=== PATIENT | male | born 1955 ===

== ENCOUNTER 2021-09-09 20:40 | Inpatient (IN) | payer OTHER, SELFPAY ==
[2021-09-09] VITALS (7 sets, daily range): BP systolic 139; BP diastolic 88; PULSE 117–122; RESP 17–30; TEMP 36.1–36.3; O2SAT 97–100; BMI 25.0
--- NOTE | 2021-09-09 21:59 | P.HP_ITS ---
History of Present Illness History of Present Illness Date Patient Seen: 09/09/21 Time Patient Seen: 21:58 Chief complaint: Chest pain Narrative: Igor Antony is a 66-year-old male with a medical history of anxiety, CAD, CABG s/p stents X2, NIDDM, hyperlipidemia, hypertension, sleep apnea, BPH and multiple sclerosis who presented to the [facility] ED complaining of chest pain, nausea, vomiting, lightheadedness, and headache x2 days. Chest pain was described as chest heaviness like a safe sitting on chest Chest pressure :constant, generalized, diffuse, moderate, no known inciting factors, improved with Medication in ED, with associated JAIMES which is unusual for the patient, nausea, and vomiting. And patient has been unable to keep food or fluids down for the last 24 hours. After 2 days of intractable nausea and vomiting patient began to feel lightheaded, and felt warm but no temperature noted at home. Reviewed case with Dr. Horton from a [facility] ED at approximately 1930, agreed to accept patient for transfer for a DKA with anion gap of 27, secondary to dehydration, acute respiratory alkalosis with hypocapnia in the setting of [id number]-[id number] type 2 diabetes with hyperglycemia. Upon admit patient verbalizes that chest pressure and headache have resolved. Patient denies chest pain shortness of breath, vomiting, hematemesis, hematuria, melena, fever, body aches, chills, changes in vision, recent changes in medication, injury, or trauma. Patient does indoors continue nausea, generalized abdominal pain, and requests a catheter for BPH related urinary symptoms. Patient is currently stable, and in no acute distress. 0 patient arrived from [facility] on insulin drip per ACL[facility] transport. I personally reviewed patient's medical records from [facility] to include imaging, [place] findings, EKG do, and chart notes. Last documented vitals temp 97.5?, BP 143/63 (initial 175/69) tachycardic with HR 110, R 19, O2 saturation 100% on room air, weight 88.5 kg. HCT 5.2, potassium 5.1, chloride 109, bicarb 8, creatinine 0.70, initial glucose 194 R, last known prior to transfer 133, positive for serum ketone, TSH was low at 0.101, BUN is negative, troponin is negative, albumin 5.2, calcium 10.2, respiratory panel is negative, chlamydia negative COVID negative, patient in gap of 27, patient's ABGs pH 7.170, CO2 of 30, bicarb 10.8, base excess-16.4, urinalysis is positive for glucose, ketones, blood. CT KUB demonstrated bilateral nephrolithiasis without obstructive uropathy. Dependent urinary stone in the bladder 2.1 cm. Chest x-ray demonstrated no acute pneumonia paired with nodular opacities project dri over the lung bases. EKG demonstrated sinus tachycardia with a rate of 111 right BBB, and LAFB, ST elevation secondary to IVCD, no changes from 06/2019 EKG. Patient admitted for acute respiratory alkalosis with hypocapnia secondary to DKA as a result of dehydration, in the setting of NIDDM. Patient History Medical History (Updated 09/10/21 @ 06:15 by JENIFFER Gerber-PRADEEP) Anxiety CAD (coronary artery disease) Hyperlipidemia associated with type 2 diabetes mellitus Insomnia Lumbar disc disease Multiple sclerosis Surgical History (Updated 09/10/21 @ 06:15 by PATITO Gerber) S/P CABG x 1 Family & Social History Family History Father No problems noted. Mother No problems noted. Social History: Retired, disabled, does occasional yd work Tobacco & Substance use: Smoked 1 pack a day times 12 years quit in 1999 No substance abuse Alcohol intake where Meds Home Medications and Allergies Allergies Allergy/AdvReac Type Severity Reaction Status Date / Time codeine Allergy Mild ITCHING Verified 09/09/21 23:15 Review of Systems Review of Systems Narrative: All 12 point systems reviewed with the patient and are negative except otherwise documented. Exam Vital Signs (past 8 hours): Narrative Exam Narrative: General: Patient is a well-developed, well-nourished in no distress at this time. HEENT: Normocephalic, atraumatic, extraocular muscles intact, oral pharynx is clear and mucous membranes are moist. Neck is supple and symmetric, trachea is midline, no adenopathy, no thyroid enlargement, nontender, no masses palpated. Negative for JVD Chest: Normal AP diameter and contour without kyphoscoliosis, no nasal flaring, retractions, or tachypneic labored Lungs: Auscultation of all lung irvin are clear without adventitious sounds, wheezes, rhonchi, or rales. Cardio: S1 & S2 with regular rate and rhythm without murmur, rubs, or gallops, no carotid bruit, no cardiac pulsations present. Abdomen: Soft nontender, negative for organomegaly, or masses. Bowel sounds are present in all 4 quadrants without guarding or rebound, no CVA tenderness. Musculoskeletal: Muscle strength and tone are equal within normal limits, no deformity, crepitus, effusions, cyanosis, clubbing or edema present. Full range of motion intact radial and pedal pulses are normal. Skin: Warm dry and intact without rashes, ulcerations or petechiae. Neuro: Alert and orientated x3, strength is +5/5 in all extremities, sensation to touch intact, no gross deficits noted of cranial nerves. Psych: Patient has a well-kept appearance, appropriate affect, mental status attitude thought context and judgment are appropriate for age. Objective Labs Result Diagrams: 09/10/21 04:53 09/10/21 04:53 Assessment & Plan Assessment & Plan narrative: Igor Antony is a 66-year-old male with a medical history of anxiety, CAD, CABG s/p stents X2, NIDDM, hyperlipidemia, hypertension, sleep apnea, BPH and mult iple sclerosis who presented to the [facility] ED complaining of chest pain, nausea, vomiting, lightheadedness, and headache x2 days. Patient admitted for acute respiratory alkalosis with hypocapnia secondary to DKA as a result of dehydration, and NIDDM. 1. Acute respiratory alkalosis with hypocapnia secondary to DKA as a result of dehydration the setting of NIDDM, acute, present admission -requested Dr. Horton [place] ED initiate insulin drip-Continued upon admission -DKA protocol -BmP q.4 hours while on drip, BMP, Trop, Bld cultures upon admit -ABG in am -Carb diet-pt can eat while on drip -Direct admit to ICU -hold Jardiance and Glucophage until off drip 2. Essential hypertension, acute on chronic, with history CAD CABG s/p times 1 present on admission -175/69, 143/63 -hold HCTZ, Potssium until off drip -continue Cardura Vasotec 3. Hyperlipidemia related to type 2 diabetes, chronic, present on admission -continue Lipitor 4. Multiple sclerosis, with secondary Lumbar disc disease, chronic, present on admission -continue patient's Percocet, gabapentin, Flexeril 5. Insomnia, chronic, present admission -continue Ambien 6. BPH, with lower urinary symptoms, chronic, present on admission -patient requests Heart Code status:Full Surrogate decision maker: Josh RUEDA PCR:Negative COVID vaccination: Unknown DVT/VTE prophylaxis: Lovenox and SCDs Disposition: Patient admitted to the ICU expected length of stay greater than 2 midnights. I have utilized all available immediate resources to obtain, update, or review the patient's current medications. I confirmed that the patient's advanced care plan is present, Code status is documented and/or surrogate decision maker is listed in the patient's medical record. Time Spent With Patient Critical Care time: I spent a total of [] minutes of critical care time on this patient's care today; this time is exclusive of procedural time.
[2021-09-09] MEDS: INSULIN DRIP PREMIX 100 UNIT/100 ML PLAST..BAG 6.7 UNIT IV (22:49)
[2021-09-09 22:55] LABS: Blood Urea Nitrogen 17 mg/dL (9-20); Carbon Dioxide 11 mmol/L (22-32); Chloride 109 mmol/L (98-107); Estimated Glomerular Filt Rate > 60.0 mL/min (>60); Glucose 199 mg/dL (80-110); HEMOLYSIS < 15 (0-50); Lactate (Lactic Acid) 1.1 mmol/L (0.7-2.1); Sodium 139 mmol/L (137-145)
[2021-09-09 22:57] LABS: Hemoglobin A1C% w Est Avg Glu 7.5 % (4.0-6.0)
[2021-09-09 23:04] LABS: NT-proBNP (BNP-Adult 18+) 36 pg/mL (<125)
[2021-09-09] MEDS: DEXTROSE 5%-0.45% NS 1,000 ML 125 ML IV (23:53)
[2021-09-10] VITALS (59 sets, daily range): BP systolic 133–181; BP diastolic 72–98; PULSE 93–141; RESP 9–34; TEMP 36.3–36.7; O2SAT 97–100
[2021-09-10] MEDS: DEXTROSE 10 % IN WATER 1,000 ML 84 ML IV (02:10)
[2021-09-10 05:31] LABS: Add Manual Diff / Slide Review NO; Basophils Absolute Auto 0 /uL (0-100); Basophils Percent Auto 0.1 % (0-2); Eosinophils Absolute Auto 0 /uL (0-450); Eosinophils Percent Auto 0.1 % (2-4); Hematocrit 47.3 % (41-53); Hemoglobin 15.6 g/dL (13.5-17.5); Lymphocytes Absolute Auto 1000 /uL (1100-4500); Lymphocytes Percent Auto 9.3 % (25-40); Mean Corpuscular HGB Conc 33.1 % (30-36); Mean Corpuscular Hemoglobin 26.9 PG (26-34); Mean Corpuscular Volume 81.3 fL (80-100); Monocytes Absolute Auto 1500 /uL (0-900); Monocytes Percent Auto 13.1 % (3-14); Neutrophils Absolute Auto 8700 /uL (1500-7000); Neutrophils Percent Auto 77.4 % (50-75); Platelet Count 269 X10^3/uL (150-400); Red Blood Cell Count 5.82 X10^6/uL (4.5-5.9); Red Cell Distribution Width 14.8 % (11.6-14.8); White Blood Cell Count 11.2 X10^3/uL (4.5-11.0)
[2021-09-10 05:34] LABS: HCO3 ABG 14 mmol/L (22-26); PCO2 ABG 26.7 mmHg (35-45); PO2 ABG 97 mmHg (80-100); TCO2 ABG 14 mmol/L (21-31); pH ABG 7.32 (7.35-7.45)
[2021-09-10 05:35] LABS: Fractionated Inspired Oxygen 21; Oxygen Saturation ABG 97 % (95-100)
[2021-09-10 05:45] LABS: Alanine Aminotransferase 16 IU/L (<50); Albumin 4.5 g/dL (3.5-5.0); Albumin Globulin Ratio 1.6 (1.0-2.8); Alkaline Phosphatase 74 U/L (38-126); Aspartate Aminotransferase 17 IU/L (17-59); BUN Creatinine Ratio 22.1 (6-22); Bilirubin Total 0.8 mg/dL (0.2-1.3); Blood Urea Nitrogen 15 mg/dL (9-20); Calcium 9.9 mg/dL (8.4-10.2); Carbon Dioxide 15 mmol/L (22-32); Chloride 110 mmol/L (98-107); Estimated Glomerular Filt Rate > 60.0 mL/min (>60); Globulin 2.9 g/dL (1.7-4.1); Glucose 142 mg/dL (80-110); HEMOLYSIS < 15 (0-50); Magnesium 2.3 mg/dL (1.6-2.3); Potassium 4.1 mmol/L (3.4-5.1); Sodium 139 mmol/L (137-145); Total Protein 7.4 g/dL (6.3-8.2)
[2021-09-10 06:28] LABS: Phosphorous 2.1 mg/dL (2.3-3.7)
[2021-09-10] MEDS: POTASSIUM CHLORIDE IN WATER 10 MEQ/100 ML PIGGYBACK 100 MEQ IV (06:30)
[2021-09-10] MEDS: INSULIN GLARGINE 100 UNIT/ML 3ML PEN 15 UNIT SUBCUT (07:49)
[2021-09-10] MEDS: SENNOSIDES 8.6 MG TABLET PO (08:49)
[2021-09-10] MEDS: DOCUSATE 100 MG CAPSULE PO ×2 (08:49→19:59)
[2021-09-10] MEDS: ENOXAPARIN 40 MG/0.4 ML SYRINGE SUBCUT (08:49)
[2021-09-10 09:12] LABS: BUN Creatinine Ratio 23.2 (6-22); Blood Urea Nitrogen 13 mg/dL (9-20); Carbon Dioxide 18 mmol/L (22-32); Chloride 109 mmol/L (98-107); Estimated Glomerular Filt Rate > 60.0 mL/min (>60); Glucose 138 mg/dL (80-110); HEMOLYSIS 20 (0-50); Potassium 3.9 mmol/L (3.4-5.1); Sodium 136 mmol/L (137-145)
[2021-09-10] MEDS: SODIUM,POTASSIUM PHOSPHATES PACKET 2 EACH PO (10:18)
[2021-09-10] MEDS: INSULIN LISPRO 100 UNIT/ML 3ML VIAL SUBCUT ×2 (11:44→17:14)
--- NOTE | 2021-09-10 12:45 | P.PN_ITS ---
Subjective Subjective Date Patient Seen: 09/10/21 Time Patient Seen: 09:00 Interval history: Patient reports continued weakness today, this morning. Denies shortness of breath, vomiting. Finally able to tolerate some PO intake, but is weary of how breakfast will go. AG improved with infusion, transitioned off insulin infusion this AM. Given Lantus and medium dose sliding scale. A1c is 7.5%. Exam Vital Signs (past 8 hours): - 09/10/21 05:00 09/10/21 05:19 09/10/21 05:30 Temperature Pulse Rate 115 H 120 H Respiratory Rate 16 22 Blood Pressure Pulse Oximetry 97 97 09/10/21 06:00 09/10/21 06:30 09/10/21 08:40 Temperature 97.4 F L 97.6 F Pulse Rate 120 H 114 H 118 H Respiratory Rate 21 21 20 Blood Pressure 133/84 145/84 H Pulse Oximetry 98 100 09/10/21 08:54 09/10/21 11:51 Temperature 97.9 F Pulse Rate 115 H Respiratory Rate 16 Blood Pressure 166/83 H Pulse Oximetry 100 99 Oxygen Delivery Method Room Air Oxygen Flow Rate 0 Narrative Exam Narrative: General:? Patient is well developed and well nourished, moderate acutely ill appearing. HEENT:? Normocephalic, atraumatic, extraocular muscles intact, oral pharynx is clear and mucous membranes are moist. Neck: supple and symmetric, trachea is midline, no cervical adenopathy. Negative for JVD Chest:? Normal AP diameter and contour without kyphoscoliosis, no tachypnea, equal chest rise bilaterally. Lungs:? CTA b/l no wheezing rhonchi or rales. Cardio:?tachycardic but regular rhythm, no m/r/g. Abdomen: S NT ND. No CVA tenderness. Musculoskeletal:? Muscle strength and tone are equal within normal limits, no deformity. Extremities: No edema or joint effusions. No cyanosis or clubbing. Skin:? Pale,? Warm to touch,dry and intact without rashes, ulcerations or petechiae.? Neuro:? Alert and orientated x3,? sensation to touch intact in all extremities, no gross deficits noted of cranial nerves. Psych:? Patient has a well-kept appearance, appropriate affect, mental status attitude thought context and judgment are appropriate for age. Objective Labs Result Diagrams: 09/10/21 04:53 09/10/21 08:40 Labs: Laboratory Results - last 24 hr 09/09/21 09/09/21 09/09/21 22:20 22:20 22:20 WBC RBC Hgb Hct MCV MCH MCHC RDW Plt Count Neut % (Auto) Lymph % (Auto) Whitley % (Auto) Eos % (Auto) Baso % (Auto) Neut # (Auto) Lymph # (Auto) Whitley # (Auto) Eos # (Auto) Baso # (Auto) ABG pH ABG pCO2 ABG pO2 ABG HCO3 ABG Total CO2 ABG O2 Saturation ABG Base Excess FiO2 Sodium 139 Potassium 5.0 Chloride 109 H Carbon Dioxide 11 L BUN 17 Creatinine 0.81 Estimated GFR > 60.0 BUN/Creatinine Ratio 21.0 Glucose 199 H Hemoglobin A1c 7.5 H Lactate 1.1 Calcium 10.0 Phosphorus Magnesium Total Bilirubin AST ALT Alkaline Phosphatase NT-Pro-B Natriuret Pep 36 Total Protein Albumin Globulin Albumin/Globulin Ratio 09/10/21 09/10/21 09/10/21 04:53 04:53 05:17 WBC 11.2 H RBC 5.82 Hgb 15.6 Hct 47.3 MCV 81.3 MCH 26.9 MCHC 33.1 RDW 14.8 Plt Count 269 Neut % (Auto) 77.4 H Lymph % (Auto) 9.3 L Whitley % (Auto) 13.1 Eos % (Auto) 0.1 L Baso % (Auto) 0.1 Neut # (Auto) 8700 H Lymph # (Auto) 1000 L Whitley # (Auto) 1500 H Eos # (Auto) 0 Baso # (Auto) 0 ABG pH 7.32 L ABG pCO2 26.7 L ABG pO2 97 ABG HCO3 14 L ABG Total CO2 14 L ABG O2 Saturation 97 ABG Base Excess -13.0 L FiO2 21 Sodium 139 Potassium 4.1 Chloride 110 H Carbon Dioxide 15 L BUN 15 Creatinine 0.68 Estimated GFR > 60.0 BUN/Creatinine Ratio 22.1 H Glucose 142 H Hemoglobin A1c Lactate Calcium 9.9 Phosphorus Magnesium 2.3 Total Bilirubin 0.8 AST 17 ALT 16 Alkaline Phosphatase 74 NT-Pro-B Natriuret Pep Total Protein 7.4 Albumin 4.5 Globulin 2.9 Albumin/Globulin Ratio 1.6 09/10/21 09/10/21 05:17 08:40 WBC RBC Hgb Hct MCV MCH MCHC RDW Plt Count Neut % (Auto) Lymph % (Auto) Whitley % (Auto) Eos % (Auto) Baso % (Auto) Neut # (Auto) Lymph # (Auto) Whitley # (Auto) Eos # (Auto) Baso # (Auto) ABG pH ABG pCO2 ABG pO2 ABG HCO3 ABG Total CO2 ABG O2 Saturation ABG Base Excess FiO2 Sodium 136 L Potassium 3.9 Chloride 109 H Carbon Dioxide 18 L BUN 13 Creatinine 0.56 L Estimated GFR > 60.0 BUN/Creatinine Ratio 23.2 H Glucose 138 H Hemoglobin A1c Lactate Calcium 10.0 Phosphorus 2.1 L Magnesium Total Bilirubin AST ALT Alkaline Phosphatase NT-Pro-B Natriuret Pep Total Protein Albumin Globulin Albumin/Globulin Ratio PFSH Medical History (Updated 09/10/21 @ 06:15 by PATITO Gerber) Anxiety CAD (coronary artery disease) Hyperlipidemia associated with type 2 diabetes mellitus Insomnia Lumbar disc disease Multiple sclerosis Surgical History (Updated 09/10/21 @ 06:15 by PATITO Gerber) S/P CABG x 1 Family History (Updated 09/10/21 @ 06:16 by PATITO Gerber) Father No problems noted. Mother No problems noted. Social History household members: spouse Smoking Status: Never smoker alcohol intake: current Assessment & Plan Assessment & Plan narrative: diogo Antony is a 66-year-old male with a medical history of anxiety, CAD, CABG s/p stents X2, NIDDM, hyperlipidemia, hypertension, sleep apnea, BPH and multiple sclerosis who presented to the [facility] ED complaining of chest pain, nausea, vomiting, lightheadedness, and headache x2 days.? Patient admitted for acute respiratory alkalosis with hypocapnia secondary to DKA as a result of dehydration, and NIDDM. 1. Acute respiratory alkalosis with hypocapnia secondary to DKA as a result of dehydration the setting of NIDDM, acute, present admission -DKA now resolved after insulin infusion, shut off at 9am this morning a pproximately. - now on basal bolus insulin - continue to adjust as needed - likely non-specific GI symptoms led to DKA, fairly euglycemic while on Jardiance. No signs of infection on initial evaluations. - can resume jardiance on discharge. - PCP follow up after improved symptoms. 2. Essential hypertension, acute on chronic, with history CAD CABG s/p times 1 present on admission -hold home medications for now, resume tomorrow or today if becomes hypertensive. 3. Hyperlipidemia related to type 2 diabetes, chronic, present on admission -continue Lipitor 4. Multiple sclerosis, with secondary Lumbar disc disease, chronic, present on admission -continue patient's Percocet, gabapentin, Flexeril 5. Insomnia, chronic, present admission -continue Ambien 6. BPH, with lower urinary symptoms, chronic, present on admission -patient requests Heart -remove ARMANDO. I spent 30 minutes providing critical care management this patient. This excludes time spent in performing separately billed procedures. Code status:Full Surrogate decision maker: Josh Osborn Dispo: Stable for regular floor now off of insulin infusion. Proably home tomorrow if symptoms improve. Time Spent With Patient Critical Care time: I spent a total of [] minutes of critical care time on this patient's care today; this time is exclusive of procedural time. Quality VTE Deep Vein Thrombosis/Pulmonary Embolism Present on Admission: No
[2021-09-10] MEDS: ACETAMINOPHEN 325 MG TABLET 650 MG PO (13:56)
[2021-09-10] MEDS: ONDANSETRON 4 MG/2 ML INJ IV (14:25)
--- NOTE | 2021-09-10 15:36 | CM.DANOTE ---
Patient is a 66 yo male who was admitted on 09/09/21 for Chest Pain. Pt has [employer] for insurance and no listed PCP. EMR was reviewed. Per MD, pt with hx of MS and anxiety and CABG at baseline and was transferred from [facility] for DKA for non insulin type 2 Diabetes from dehydration and respiratory alkalosis. SW met briefly bedside with pt and explained role and he confirms he lives in [facility] with his spouse and is independent at baseline. Pt has been tolerating his diet but still feels weak and not quite stable for d/c home yet today but confirms spouse can assist if needed at d/c but he's hopeful to dc home tomorrow and does not anticipate any needs. Per RN, pt off hep drip and still a little tachy, likely d/c home tomorrow. Plan: SW to follow closely for plan of d/c home to [place] tomorrow and any further identified discharge planning needs/. FEDERICO Morales
[2021-09-10] MEDS: ENALAPRIL 5 MG TABLET PO (17:54)
[2021-09-10 18:09] LABS: BUN Creatinine Ratio 18.8 (6-22); Blood Urea Nitrogen 13 mg/dL (9-20); Calcium 10.6 mg/dL (8.4-10.2); Carbon Dioxide 12 mmol/L (22-32); Chloride 106 mmol/L (98-107); Estimated Glomerular Filt Rate > 60.0 mL/min (>60); Glucose 226 mg/dL (80-110); HEMOLYSIS < 15 (0-50); Magnesium 2.2 mg/dL (1.6-2.3); Phosphorous 2.4 mg/dL (2.3-3.7); Sodium 136 mmol/L (137-145)
--- NOTE | 2021-09-10 18:41 | PC.NURSE ---
Day Shift Note Insulin gtt off at 0845 (1 hour after Lantus 15 unit admin) per MD order. Pt with increasing tachycardia (120s) and HTN throughout shift, SBP to the 180s. Dr. Landrum notified and orders received for home dose of enalapril which was given. Pt reported increase in nausea, zofran ineffective, abdominal bloating present; pt attempted BM but was unsuccessful. 1 person assist with FWW to bathroom, legs weak but steady. Orders received to recheck BMP, Mg, phos. Call light within reach, using appropriately to make needs known.
[2021-09-10] MEDS: DEXTROSE 5%-0.45% NS 1,000 ML 125 ML IV (19:55)
[2021-09-10] MEDS: INSULIN DRIP PREMIX 100 UNIT/100 ML PLAST..BAG 8.4 UNIT IV (19:55)
[2021-09-10] MEDS: DOXAZOSIN 4 MG TABLET 8 MG PO (21:17)
[2021-09-10] MEDS: ZOLPIDEM 5 MG TABLET PO (21:17)
[2021-09-10] MEDS: METOCLOPRAMIDE 10 MG/2 ML INJ 5 MG IV (22:01)
--- NOTE | 2021-09-10 22:15 | PC.NURSE ---
Addendum entered by Sarah Davis R.N. 09/11/21 01:47: 0130: Pt with increased hematuria. MD notified, order for H&H received. Original Note: 2200: Pt with continued, unrelenting nausea/vomiting. PRNs administered with no appreciable effect. Abd distended with active bowel tones throughout. Pt also continues to have hematuria per cuello, small clots noted. MD aware, orders received, will continue to monitor.
[2021-09-10 22:31] LABS: Appearance Urine UA SL CLOUDY; Color Urine UA RED; Glucose Urine UA 2+ g/dL (Negative); Ketones Urine UA 3+ (NEGATIVE); Leukocyte Esterase Urine UA NEGATIVE (NEGATIVE); Nitrite Urine UA NEGATIVE (Negative); Occult Blood Urine UA 3+ (Negative); Protein Urine UA 2+ (Negative); Urobilinogen Urine UA 0.2 E.U./dL (0.2); pH Urine UA 5.5 (4.5-8.0)
[2021-09-10 22:40] LABS: Bilirubin Urine UA Negative (NEGATIVE)
[2021-09-10 22:41] LABS: Bacteria Urine None Seen; Culture Indicated Urine Cult Not Indicated; RBC Urine >100/HPF (0-5/HPF); WBC Urine 0-1/HPF (0-5/HPF)
[2021-09-11] VITALS (37 sets, daily range): BP systolic 114–157; BP diastolic 65–86; PULSE 111–125; RESP 10–31; TEMP 36.4–36.9; O2SAT 96–100
[2021-09-11 01:30] LABS: BUN Creatinine Ratio 24.1 (6-22); Blood Urea Nitrogen 13 mg/dL (9-20); Calcium 10.3 mg/dL (8.4-10.2); Carbon Dioxide 18 mmol/L (22-32); Chloride 105 mmol/L (98-107); Estimated Glomerular Filt Rate > 60.0 mL/min (>60); Glucose 170 mg/dL (80-110); HEMOLYSIS 19 (0-50); Magnesium 2.1 mg/dL (1.6-2.3); Phosphorous 1.9 mg/dL (2.3-3.7); Potassium 3.7 mmol/L (3.4-5.1); Sodium 133 mmol/L (137-145)
[2021-09-11 01:53] LABS: Hematocrit 45.7 % (41-53); Hemoglobin 15.4 g/dL (13.5-17.5)
[2021-09-11] MEDS: DEXTROSE 5%-0.45% NS 1,000 ML 125 ML IV (02:34)
[2021-09-11] MEDS: INSULIN DRIP PREMIX 100 UNIT/100 ML PLAST..BAG 6.7 UNIT IV (05:57)
[2021-09-11 06:25] LABS: Add Manual Diff / Slide Review NO; Basophils Absolute Auto 0 /uL (0-100); Basophils Percent Auto 0.3 % (0-2); Eosinophils Absolute Auto 0 /uL (0-450); Eosinophils Percent Auto 0.1 % (2-4); Hematocrit 44.9 % (41-53); Hemoglobin 15.2 g/dL (13.5-17.5); Lymphocytes Absolute Auto 900 /uL (1100-4500); Lymphocytes Percent Auto 8.8 % (25-40); Mean Corpuscular HGB Conc 33.8 % (30-36); Mean Corpuscular Hemoglobin 27.3 PG (26-34); Monocytes Absolute Auto 1300 /uL (0-900); Monocytes Percent Auto 12.9 % (3-14); Neutrophils Absolute Auto 7900 /uL (1500-7000); Neutrophils Percent Auto 77.9 % (50-75); Platelet Count 234 X10^3/uL (150-400); Red Blood Cell Count 5.55 X10^6/uL (4.5-5.9); Red Cell Distribution Width 14.3 % (11.6-14.8); White Blood Cell Count 10.2 X10^3/uL (4.5-11.0)
[2021-09-11 06:37] LABS: BUN Creatinine Ratio 21.8 (6-22); Blood Urea Nitrogen 12 mg/dL (9-20); Calcium 10.2 mg/dL (8.4-10.2); Carbon Dioxide 22 mmol/L (22-32); Chloride 104 mmol/L (98-107); Estimated Glomerular Filt Rate > 60.0 mL/min (>60); Glucose 168 mg/dL (80-110); HEMOLYSIS < 15 (0-50); Magnesium 2.1 mg/dL (1.6-2.3); Phosphorous 2.4 mg/dL (2.3-3.7); Potassium 3.5 mmol/L (3.4-5.1); Sodium 134 mmol/L (137-145)
[2021-09-11] MEDS: POTASSIUM CHLORIDE IN WATER 10 MEQ/100 ML PIGGYBACK 100 MEQ IV ×4 (08:20→11:46)
[2021-09-11] MEDS: ENOXAPARIN 40 MG/0.4 ML SYRINGE SUBCUT (08:20)
[2021-09-11] MEDS: INSULIN GLARGINE 100 UNIT/ML 3ML PEN 20 UNIT SUBCUT (08:26)
[2021-09-11] MEDS: DOCUSATE 100 MG CAPSULE PO ×2 (08:47→20:51)
[2021-09-11] MEDS: FINASTERIDE 5 MG TABLET PO (08:47)
[2021-09-11] MEDS: ASPIRIN EC 81 MG TABLET PO (08:47)
[2021-09-11] MEDS: SENNOSIDES 8.6 MG TABLET PO (08:47)
[2021-09-11] MEDS: ENALAPRIL 5 MG TABLET PO (08:51)
[2021-09-11] MEDS: BISACODYL 5 MG TABLET 10 MG PO (08:51)
--- NOTE | 2021-09-11 09:39 | P.TELICUCN_ITS ---
History of Present Illness Consult details Chief complaint: Chest pain :: This patient was seen in the Intensive Care Unit via real time interactive two- way audiovisual telecommunication. Narrative: Patient is a 66 year old male who history of T2DM who was admitted on 09/09/2021 for DKA. He was resuscitated with crystalloids and started on insulin infusion. His AG closed and transitioned to lantus 20 units. However, his gap reopen and was restarted back on insulin infusion per DKA protocol. BMP showed AG 10 and Co2 22. He was transitioned back to lantus 20 units and plan to continue insulin infusion running for 3 hours prior to discontinuing it. [facility] Medical History (Updated 09/10/21 @ 06:15 by PATITO Gerber) Anxiety CAD (coronary artery disease) Hyperlipidemia associated with type 2 diabetes mellitus Insomnia Lumbar disc disease Multiple sclerosis Surgical History (Updated 09/10/21 @ 06:15 by PATITO Gerber) S/P CABG x 1 Family History (Updated 09/10/21 @ 06:16 by PATITO Gerber) Father No problems noted. Mother No problems noted. Social History household members: spouse Smoking Status: Never smoker alcohol intake: current Current Medications Current Medications Medications: Home Medications aspirin 81 mg tablet,delayed release 81 mg PO DAILY 09/10/21 [History Confirmed 09/10/21] atorvastatin 40 mg tablet 40 mg PO DAILY 09/10/21 [History Confirmed 09/10/21] cinnamon bark 500 mg capsule 500 mg PO DAILY 09/10/21 [History Confirmed 09/10/21] citalopram 20 mg tablet 20 mg PO DAILY 09/10/21 [History Confirmed 09/10/21] doxazosin 8 mg tablet 8 mg PO BEDTIME 09/10/21 [History Confirmed 09/10/21] enalapril maleate 5 mg tablet 5 mg PO DAILY 09/10/21 [History Confirmed 09/10/21] finasteride 5 mg tablet 5 mg PO DAILY 09/10/21 [History Confirmed 09/10/21] gabapentin 600 mg tablet 600 mg PO DAILY 09/10/21 [History Confirmed 09/10/21] hydrochlorothiazide 25 mg tablet 25 mg PO DAILY 09/10/21 [History Confirmed 09/10/21] metformin 500 mg tablet,extended release 24 hr 1,000 mg PO BID 09/10/21 [History Confirmed 09/10/21] metformin 500 mg tablet,extended release 24 hr 500 mg PO 1200 09/10/21 [History Confirmed 09/10/21] aiaulhjndoof-ghnqvvob-terbda tablet 1 tab PO DAILY 09/10/21 [History Confirmed 09/10/21] oxycodone-acetaminophen 10 mg-325 mg tablet (Percocet) 1 tab PO Q4H PRN 09/10/21 [History Confirmed 09/10/21] potassium chloride 10 mEq tablet,extended release 10 meq PO DAILY 09/10/21 [History Confirmed 09/10/21] triamcinolone acetonide 0.1 % topical cream 1 applic TOPICAL BID 09/10/21 [History Confirmed 09/10/21] zolpidem 5 mg tablet (Ambien) 5 mg PO BEDTIME PRN 09/10/21 [History Confirmed 09/10/21] Visit Medications (administered) Generic Name Dose Route Start Last Admin Trade Name Freq PRN Reason Stop Dose Admin Acetaminophen 650 mg 09/09/21 21:26 09/10/21 13:56 Acetaminophen 325 Mg Tablet PO 650 mg Q4HR PRN Administration Fever/Mild Pain (1-3) Aspirin 81 mg 09/11/21 09:00 09/11/21 08:47 Aspirin Ec 81 Mg Tablet PO 81 mg DAILY ARTHUR Administration Atorvastatin Calcium 40 mg 09/11/21 09:00 09/11/21 08:46 Atorvastatin 20 Mg Tablet PO Not Given DAILY ARTHUR Docusate Sodium 100 mg 09/10/21 09:00 09/11/21 08:47 Docusate 100 Mg Capsule PO 09/13/21 08:59 100 mg BID ARTHUR Administration Doxazosin Mesylate 8 mg 09/10/21 21:00 09/10/21 21:17 Doxazosin 4 Mg Tablet PO 8 mg BEDTIME ARTHUR Administration Enalapril Maleate 5 mg 09/10/21 16:50 09/11/21 08:51 Enalapril 5 Mg Tablet PO 5 mg DAILY ARTHUR Administration Enoxaparin Sodium 40 mg 09/10/21 09:00 09/11/21 08:20 Enoxaparin 40 Mg/0.4 Ml Syringe SUBCUT 40 mg DAILY ARTHUR Administration Finasteride 5 mg 09/11/21 09:00 09/11/21 08:47 Finasteride 5 Mg Tablet PO 5 mg DAILY ARTHUR Administration Gabapentin 600 mg 09/11/21 09:00 09/11/21 08:47 Gabapentin 600 Mg Tablet PO Not Given DAILY ARTHUR INSULIN DRIP PREMIX 100 unit in 100 mls @ 6 mls/hr 09/10/21 19:30 09/11/21 07:30 Myxredlin Drip Premix IV 1.7 mls/hr TITRATE ARTHUR 1.7 mls/hr Titration Protocol Dextrose/Sodium Chloride 1,000 mls @ 125 mls/hr 09/10/21 19:45 09/11/21 04:58 Dextrose 5%-0.45% Ns IV 125 mls/hr CONT ARTHUR Infusion Dextrose 1,000 mls @ 84 mls/hr 09/10/21 19:45 09/10/21 20:58 D10w IV Not Given CONT ARTHUR POTASSIUM CHLORIDE IN WATER 10 meq in 100 mls @ 100 mls/hr 09/11/21 08:15 09/11/21 09:16 Potassium Cl 10 Meq/100 Ml Keisha IV 09/11/21 12:14 100 mls/hr Q1H ARTHUR Administration Insulin Glargine 20 unit 09/11/21 09:00 09/11/21 08:26 Insulin Glargine 100 Unit/Ml 3ml Pen SUBCUT 20 unit DAILY ARTHUR Administration Insulin Human Lispro 0 unit 09/10/21 07:45 09/11/21 06:27 Insulin Lispro 100 Unit/Ml 3ml Vial SUBCUT Not Given ACHS [facility] Protocol Metoclopramide HCl 5 mg 09/10/21 20:54 09/10/21 22:01 Metoclopramide 10 Mg/2 Ml Inj IV 5 mg Q6HR PRN Administration Nausea And Vomiting Ondansetron HCl 4 mg 09/09/21 21:26 09/10/21 14:25 Ondansetron 4 Mg/2 Ml Inj IV 4 mg Q4HR PRN Administration Nausea And Vomiting Potassium Chloride 10 meq 09/11/21 09:00 09/11/21 08:47 Potassium Chloride 10 Meq Tab PO Not Given DAILY ARTHUR Sennosides 8.6 mg 09/10/21 09:00 09/11/21 08:47 Sennosides 8.6 Mg Tablet PO 8.6 mg DAILY ARTHUR Administration Zolpidem Tartrate 5 mg 09/10/21 16:47 09/10/21 21:17 Zolpidem 5 Mg Tablet PO 5 mg BEDTIME PRN Administration Sleep Exam Vital Signs (past 8 hours): - 09/11/21 03:00 09/11/21 08:40 Temperature 97.5 F L 97.6 F Pulse Rate 120 H 113 H Respiratory Rate 21 20 Blood Pressure 117/72 120/65 Pulse Oximetry 97 99 Oxygen Delivery Method Room Air Oxygen Flow Rate 0 Objective Labs Result Diagrams: 09/11/21 05:55 09/11/21 05:55 Labs: Laboratory Results - last 24 hr 09/10/21 09/10/21 09/10/21 17:48 17:48 21:35 WBC RBC Hgb Hct MCV MCH MCHC RDW Plt Count Neut % (Auto) Lymph % (Auto) [place] % (Auto) Eos % (Auto) Baso % (Auto) Neut # (Auto) Lymph # (Auto) [place] # (Auto) Eos # (Auto) Baso # (Auto) Sodium 136 L Potassium 4.0 Chloride 106 Carbon Dioxide 12 L BUN 13 Creatinine 0.69 Estimated GFR > 60.0 BUN/Creatinine Ratio 18.8 Glucose 226 H Calcium 10.6 H Phosphorus 2.4 Magnesium 2.2 Urine Color Red Urine Appearance Sl cloudy Urine pH 5.5 Ur Specific [place] 1.020 Urine Protein 2+ H Urine Glucose (UA) 2+ H Urine Ketones 3+ H Urine Occult Blood 3+ H Urine Nitrate Negative Urine Bilirubin Negative Urine Urobilinogen 0.2 Ur Leukocyte Esterase Negative Urine RBC >100/hpf H Urine WBC 0-1/hpf Urine Bacteria None seen Ur Culture Indicated? Cult not indicated 09/11/21 09/11/21 09/11/21 00:30 00:30 01:40 WBC RBC Hgb 15.4 Hct 45.7 MCV MCH MCHC RDW Plt Count Neut % (Auto) Lymph % (Auto) [place] % (Auto) Eos % (Auto) Baso % (Auto) Neut # (Auto) Lymph # (Auto) [place] # (Auto) Eos # (Auto) Baso # (Auto) Sodium 133 L Potassium 3.7 Chloride 105 Carbon Dioxide 18 L BUN 13 Creatinine 0.54 L Estimated GFR > 60.0 BUN/Creatinine Ratio 24.1 H Glucose 170 H Calcium 10.3 H Phosphorus 1.9 L Magnesium 2.1 Urine Color Urine Appearance Urine pH Ur Specific [place] Urine Protein Urine Glucose (UA) Urine Ketones Urine Occult Blood Urine Nitrate Urine Bilirubin Urine Urobilinogen Ur Leukocyte Esterase Urine RBC Urine WBC Urine Bacteria Ur Culture Indicated? 09/11/21 09/11/21 05:55 05:55 WBC 10.2 RBC 5.55 Hgb 15.2 Hct 44.9 MCV 81.0 MCH 27.3 MCHC 33.8 RDW 14.3 Plt Count 234 Neut % (Auto) 77.9 H Lymph % (Auto) 8.8 L [place] % (Auto) 12.9 Eos % (Auto) 0.1 L Baso % (Auto) 0.3 Neut # (Auto) 7900 H Lymph # (Auto) 900 L [place] # (Auto) 1300 H Eos # (Auto) 0 Baso # (Auto) 0 Sodium 134 L Potassium 3.5 Chloride 104 Carbon Dioxide 22 BUN 12 Creatinine 0.55 L Estimated GFR > 60.0 BUN/Creatinine Ratio 21.8 Glucose 168 H Calcium 10.2 Phosphorus 2.4 Magnesium 2.1 Urine Color Urine Appearance Urine pH Ur Specific [place] Urine Protein Urine Glucose (UA) Urine Ketones Urine Occult Blood Urine Nitrate Urine Bilirubin Urine Urobilinogen Ur Leukocyte Esterase Urine RBC Urine WBC Urine Bacteria Ur Culture Indicated? Assessment & Plan Assessment & Plan narrative: # DKA -- AG closed and Co2 22 -- Transitioned back to lantus 20 units -- Cont insulin infusion X 3 hours prior to discontinuing it -- Repeat BMP in 4 hours -- Switch accucheck to AC QHS and start ISS -- Goal BS < 180 # HTN -- Controlled -- Goal SBP < 140 # Hyperlipidemia -- On statin D/w RN at bedside. Time Spent With Patient Critical Care time: I spent a total of [] minutes of critical care time on this patient's care today; this time is exclusive of procedural time.
--- NOTE | 2021-09-11 14:50 | PM.PN.1 ---
Subjective Subjective Date Patient Seen: 09/11/21 Time Patient Seen: 14:51 Interval history: went back into DKA last night, was resumed on insulin infusion. AG again closed this AM. Given 20 U lantus then infusion stopped after 3 hours. Now improved strength and weakness, no nausea. Tolerating meals. Exam Vital Signs (past 8 hours): - 09/11/21 07:52 09/11/21 08:40 09/11/21 11:19 Temperature 97.6 F 98.5 F Pulse Rate 113 H 120 H Respiratory Rate 20 16 Blood Pressure 120/65 116/67 Pulse Oximetry 100 99 98 Oxygen Delivery Method Room Air Oxygen Flow Rate 0 Narrative Exam Narrative: General:? Patient is well developed and well nourished, no acute distress. HEENT:? Normocephalic, atraumatic, extraocular muscles intact, oral pharynx is clear and mucous membranes are moist. Neck: supple and symmetric, trachea is midline, no cervical adenopathy. Negative for JVD Chest:? Normal AP diameter and contour without kyphoscoliosis, no tachypnea, equal chest rise bilaterally. Lungs:? CTA b/l no wheezing rhonchi or rales. Cardio:?tachycardic but regular rhythm, no m/r/g. Abdomen: S NT ND. No CVA tenderness. Musculoskeletal:? Muscle strength and tone are equal within normal limits, no deformity. Extremities: No edema or joint effusions. No cyanosis or clubbing. Skin:? Pale,? Warm to touch,dry and intact without rashes, ulcerations or petechiae.? Neuro:? Alert and orientated x3,? sensation to touch intact in all extremities, no gross deficits noted of cranial nerves. Psych:? Patient has a well-kept appearance, appropriate affect, mental status attitude thought context and judgment are appropriate for age. Objective Labs Result Diagrams: 09/11/21 05:55 09/11/21 05:55 Labs: Laboratory Results - last 24 hr 09/10/21 09/10/21 09/10/21 17:48 17:48 21:35 WBC RBC Hgb Hct MCV MCH MCHC RDW Plt Count Neut % (Auto) Lymph % (Auto) [place] % (Auto) Eos % (Auto) Baso % (Auto) Neut # (Auto) Lymph # (Auto) [place] # (Auto) Eos # (Auto) Baso # (Auto) Sodium 136 L Potassium 4.0 Chloride 106 Carbon Dioxide 12 L BUN 13 Creatinine 0.69 Estimated GFR > 60.0 BUN/Creatinine Ratio 18.8 Glucose 226 H Calcium 10.6 H Phosphorus 2.4 Magnesium 2.2 Urine Color Red Urine Appearance Sl cloudy Urine pH 5.5 Ur Specific [place] 1.020 Urine Protein 2+ H Urine Glucose (UA) 2+ H Urine Ketones 3+ H Urine Occult Blood 3+ H Urine Nitrate Negative Urine Bilirubin Negative Urine Urobilinogen 0.2 Ur Leukocyte Esterase Negative Urine RBC >100/hpf H Urine WBC 0-1/hpf Urine Bacteria None seen Ur Culture Indicated? Cult not indicated 09/11/21 09/11/21 09/11/21 00:30 00:30 01:40 WBC RBC Hgb 15.4 Hct 45.7 MCV MCH MCHC RDW Plt Count Neut % (Auto) Lymph % (Auto) [place] % (Auto) Eos % (Auto) Baso % (Auto) Neut # (Auto) Lymph # (Auto) [place] # (Auto) Eos # (Auto) Baso # (Auto) Sodium 133 L Potassium 3.7 Chloride 105 Carbon Dioxide 18 L BUN 13 Creatinine 0.54 L Estimated GFR > 60.0 BUN/Creatinine Ratio 24.1 H Glucose 170 H Calcium 10.3 H Phosphorus 1.9 L Magnesium 2.1 Urine Color Urine Appearance Urine pH Ur Specific [place] Urine Protein Urine Glucose (UA) Urine Ketones Urine Occult Blood Urine Nitrate Urine Bilirubin Urine Urobilinogen Ur Leukocyte Esterase Urine RBC Urine WBC Urine Bacteria Ur Culture Indicated? 09/11/21 09/11/21 05:55 05:55 WBC 10.2 RBC 5.55 Hgb 15.2 Hct 44.9 MCV 81.0 MCH 27.3 MCHC 33.8 RDW 14.3 Plt Count 234 Neut % (Auto) 77.9 H Lymph % (Auto) 8.8 L [place] % (Auto) 12.9 Eos % (Auto) 0.1 L Baso % (Auto) 0.3 Neut # (Auto) 7900 H Lymph # (Auto) 900 L [place] # (Auto) 1300 H Eos # (Auto) 0 Baso # (Auto) 0 Sodium 134 L Potassium 3.5 Chloride 104 Carbon Dioxide 22 BUN 12 Creatinine 0.55 L Estimated GFR > 60.0 BUN/Creatinine Ratio 21.8 Glucose 168 H Calcium 10.2 Phosphorus 2.4 Magnesium 2.1 Urine Color Urine Appearance Urine pH Ur Specific [place] Urine Protein Urine Glucose (UA) Urine Ketones Urine Occult Blood Urine Nitrate Urine Bilirubin Urine Urobilinogen Ur Leukocyte Esterase Urine RBC Urine WBC Urine Bacteria Ur Culture Indicated? [facility] Medical History (Updated 09/10/21 @ 06:15 by JENIFFER GerberPRADEEP) Anxiety CAD (coronary artery disease) Hyperlipidemia associated with type 2 diabetes mellitus Insomnia Lumbar disc disease Multiple sclerosis Surgical History (Updated 09/10/21 @ 06:15 by JENIFFER Gerber-PRADEEP) S/P CABG x 1 Family History (Updated 09/10/21 @ 06:16 by PATITO Gerber) Father No problems noted. Mother No problems noted. Social History household members: spouse Smoking Status: Never smoker alcohol intake: current Assessment & Plan Assessment & Plan narrative: Igor Antony is a 66-year-old male with a medical history of anxiety, CAD, CABG s/p stents X2, NIDDM, hyperlipidemia, hypertension, sleep apnea, BPH and multiple sclerosis who presented to the [facility] ED complaining of chest pain, nausea, vomiting, lightheadedness, and headache x2 days.? Patient admitted for DKA. 1. DKA, acute, present admission -Patient had gap close, transitioned off of infusion yesterday but went again into DKA shortly after. Had to resume insulin infusion. Lantus increased from 15 to 20 units and gtt continued for 3 hours after lantus given. ?- now on basal bolus insulin - continue to adjust as needed - likely non-specific GI symptoms led to DKA, fairly euglycemic while on Jardiance. No signs of infection on initial evaluations. ?- can resume jardiance on discharge. ?- PCP follow up after improved symptoms. - UA negative for WBC, but did show >100 RBC and hematuria, ordered for culture. May be hematuria in setting of cuello placement. 2. Essential hypertension, acute on chronic, with history CAD CABG s/p times 1 present on admission -resumed home enalapril, thiazide on hold given tachycardia. BP controlled. 3. Hyperlipidemia, chronic, present on admission -continue Lipitor 4. Multiple sclerosis, with secondary Lumbar disc disease, chronic, present on admission -continue patient's Percocet, gabapentin, Flexeril 5. Insomnia, chronic, present admission -continue Ambien 6. BPH, with lower urinary symptoms, chronic, present on admission -patient requests Cuello -remove ARMANDO. I spent 30 minutes providing critical care management this patient.? This excludes time spent in performing separately billed procedures. Code status:Full Surrogate decision maker: Josh Osborn Dispo: Stable for regular floor now off of insulin infusion. Proably home tomorrow if symptoms again improve and does not again go back into DKA. Time Spent With Patient Critical Care time: I spent a total of [] minutes of critical care time on this patient's care today; this time is exclusive of procedural time. Quality VTE Deep Vein Thrombosis/Pulmonary Embolism Present on Admission: No
[2021-09-11 16:20] LABS: Blood Urea Nitrogen 12 mg/dL (9-20); Calcium 10.2 mg/dL (8.4-10.2); Carbon Dioxide 21 mmol/L (22-32); Chloride 103 mmol/L (98-107); Estimated Glomerular Filt Rate > 60.0 mL/min (>60); Glucose 249 mg/dL (80-110); HEMOLYSIS < 15 (0-50); Potassium 3.8 mmol/L (3.4-5.1); Sodium 130 mmol/L (137-145)
[2021-09-11] MEDS: INSULIN LISPRO 100 UNIT/ML 3ML VIAL SUBCUT ×3 (17:22→20:52)
--- NOTE | 2021-09-11 18:38 | PC.NURSE ---
Day Shift Note Patient off insulin gtt at 1145, 3 hours after Lantus administration per MD order. Pt had medium brown BM and reports feeling much better. Denies nausea. Heart catheter in place draining clear pink urine, lightening throughout shift.
[2021-09-11] MEDS: DOXAZOSIN 4 MG TABLET 8 MG PO (20:51)
[2021-09-12] VITALS (21 sets, daily range): BP systolic 103–154; BP diastolic 59–79; PULSE 82–134; RESP 12–27; TEMP 36.2–36.6; O2SAT 98–99
[2021-09-12] MEDS: METOCLOPRAMIDE 10 MG/2 ML INJ 5 MG IV (02:17)
[2021-09-12 04:48] LABS: Add Manual Diff / Slide Review NO; Basophils Absolute Auto 0 /uL (0-100); Basophils Percent Auto 0.2 % (0-2); Eosinophils Absolute Auto 100 /uL (0-450); Eosinophils Percent Auto 0.8 % (2-4); Hematocrit 41.9 % (41-53); Hemoglobin 14.1 g/dL (13.5-17.5); Lymphocytes Absolute Auto 1200 /uL (1100-4500); Lymphocytes Percent Auto 13.8 % (25-40); Mean Corpuscular HGB Conc 33.7 % (30-36); Mean Corpuscular Hemoglobin 27.2 PG (26-34); Mean Corpuscular Volume 80.7 fL (80-100); Monocytes Absolute Auto 1200 /uL (0-900); Monocytes Percent Auto 13.7 % (3-14); Neutrophils Absolute Auto 6100 /uL (1500-7000); Neutrophils Percent Auto 71.5 % (50-75); Platelet Count 210 X10^3/uL (150-400); Red Cell Distribution Width 14.2 % (11.6-14.8); White Blood Cell Count 8.5 X10^3/uL (4.5-11.0)
[2021-09-12 04:57] LABS: BUN Creatinine Ratio 18.2 (6-22); Blood Urea Nitrogen 10 mg/dL (9-20); Calcium 9.8 mg/dL (8.4-10.2); Carbon Dioxide 24 mmol/L (22-32); Chloride 103 mmol/L (98-107); Estimated Glomerular Filt Rate > 60.0 mL/min (>60); Glucose 207 mg/dL (80-110); HEMOLYSIS < 15 (0-50); Magnesium 1.9 mg/dL (1.6-2.3); Phosphorous 2.1 mg/dL (2.3-3.7); Potassium 3.7 mmol/L (3.4-5.1); Sodium 132 mmol/L (137-145)
[2021-09-12] MEDS: CALCIUM CARBONATE 500 MG TAB 1000 MG PO (05:34)
[2021-09-12] MEDS: INSULIN GLARGINE 100 UNIT/ML 3ML PEN 20 UNIT SUBCUT (08:36)
[2021-09-12] MEDS: ENOXAPARIN 40 MG/0.4 ML SYRINGE SUBCUT (08:37)
[2021-09-12] MEDS: POTASSIUM CHLORIDE 10 MEQ TAB PO (08:37)
[2021-09-12] MEDS: ENALAPRIL 5 MG TABLET PO (08:37)
[2021-09-12] MEDS: ASPIRIN EC 81 MG TABLET PO (08:37)
[2021-09-12] MEDS: ATORVASTATIN 20 MG TABLET 40 MG PO (08:38)
[2021-09-12] MEDS: INSULIN LISPRO 100 UNIT/ML 3ML VIAL SUBCUT ×4 (08:38→12:33)
[2021-09-12] MEDS: SODIUM,POTASSIUM PHOSPHATES PACKET 2 EACH PO (09:41)
--- NOTE | 2021-09-12 11:35 | PT.IIE ---
Current Diagnoses Type 2 diabetes mellitus with ketoacidosis without coma (09/09/21) Medical History (Last Updated 09/10/21 @ 06:15 by PATITO Gerber) Anxiety CAD (coronary artery disease) Hyperlipidemia associated with type 2 diabetes mellitus Insomnia Lumbar disc disease Multiple sclerosis Physical Therapy Inpatient Evaluation/Re-Eval M1 PT/OT-IP Prior Functional Status Start: 09/12/21 13:04 Freq: NEEDED Status: Active Protocol: Document 09/12/21 11:35 AB (Rec: 09/12/21 13:17 AB [id number]) Medical Review Prior Functional Status Medical History Reviewed Yes Communication able to make needs known Mobility and Gait pt stated that he is modified independent with all mobilities and ambulation without AD indoors but furniture cruises and uses SPC for outdoor mobility Social History Household Members spouse Living Arrangements Mobile home Number of Floors (Floors) One Floor Number of Stairs To Enter/Railing? 5 steps L rail to enter 2 steps withour rail but wall on one side to get up/down kitchen area Home Environment Standard Height Toilet,Walk in Shower Home Equipment Straight Cane,Shower Seat without Backrest,Hand Held Shower M2 PT-IP Current Condition Start: 09/12/21 13:04 Freq: NEEDED Status: Active Protocol: Document 09/12/21 11:35 AB (Rec: 09/12/21 13:17 AB [email or web address]) Physical Therapy Current Condition Current Condition Evaluation Date 09/12/21 Treatment Diagnosis DKA; difficulty in walking Onset Date 09/09/21 M3 PT-IP Subjective Start: 09/12/21 13:04 Freq: NEEDED Status: Active Protocol: Document 09/12/21 11:35 AB (Rec: 09/12/21 13:17 AB [email or web address]) Subjective Physical Therapy Visit Type Type Initial Evaluation Visit Start Time 11:35 Visit Stop Time 12:10 Total Visit Minutes 35 Number of FILM RECORDIST Visits 0 Physical Therapy Visit Comments Patient Comments pt is agreeable to do PT M4 PT-IP Mobility and Gait Start: 09/12/21 13:04 Freq: NEEDED Status: Active Protocol: Document 09/12/21 11:35 AB (Rec: 09/12/21 13:17 AB [email or web address]) PT-Transfer Assessment Sit to and From Stand Sit to and from Stand Contact Guard Assistance, Minimal Assistance,1 Person Assistance,Use of Upper Extremities Equipment Transfer Assistive Device Bed Rail,Straight Cane,Front Wheeled Walker Orthotic/Prosthetic Devices or Brace: No Comments Mobility Comments Nurse informed PT that pt might go home today. pt sitting on EOB. stated that he feels weak but agreed to do PT. completed sit to stand CGA and ambulated in room using SPC min A and cues. presents with unstable gait with decrease LE elevation. pt educated on safety and agreed to use of FWW. completed ambulation in room using FWW SBA with steady gait and able to elevate LE up. pt agreed to use FWW at this time for home use. pt completed up/down step stool with L side rail CGA + R side SPC use; pt also completed with wall on L and R side SPC CGA. pt want to sit on EOB and ambulated to EOB using FWW SBA . call light and table within reach. informed nurse that pt will need a FWW for home use and stated that she will let the doctor know. Gait Assessment Gait Gait Assistance Required: Contact Guard Assist,Minimum Assistance Distance (Feet) 20 Able to Maintain Weight Bearing Status Yes During Gait Assistive Devices Assistive Device Gait Belt,Straight Cane,Front Wheeled Walker Orthotic/Prosthetic Devices or Brace: No Gait Deviations General Gait Pattern Antalgic,Decreased Stride Length,Decreased Feet Clearance Factors Limiting Gait Function Factors Limiting Gait Function Decreased Activity Tolerance, Decreased Strength,Limited Range of Motion,Pain,Poor Balance,Poor Safety Awareness Stair Climbing Assessment Evaluation Level of Assist On Stairs Contact Guard Assistance Devices Stair Climbing Assistive Devices Straight Cane,Left Railing Technique/Endurance Stair Climbing Direction Ascend and Descend Stair Climbing Technique Step to Step Number of Steps Climbed 1 Query Text: Stair Climbing Set # Repetitions (reps) 3 PT-Balance Assessment Sitting Balance and Reactions Static Sitting Balance Ability Good Dynamic Sitting Balance Ability Good Standing Balance and Reactions Static Standing Balance Ability Fair Dynamic Standing Balance Ability Fair Device Used FWW M5 PT-IP Objective Assessments Start: 09/12/21 13:04 Freq: NEEDED Status: Active Protocol: Document 09/12/21 11:35 AB (Rec: 09/12/21 13:17 AB [id number]) Orientation Orientation/Cognition Level of Alertness Alert Orientation Name,Place,Situation Language Function Ability No Deficits Noted Safety Awareness Decreased Safety Awareness Memory Description No Deficits Noted Gross Range of Motion Lower Extremity ROM Assessment Within Functional Limits Strength Lower Extremity Strength Assessment Bilaterally Impaired Comments Strength Comments LLE: 4-/5 RLE: 3+/5 Sensation Assessment Sensation Gross Sensation WNL Muscle Tone Muscle Tone WNL Yes M6 PT-IP Treatment Start: 09/12/21 13:04 Freq: NEEDED Status: Active Protocol: Document 09/12/21 11:35 AB (Rec: 09/12/21 13:17 AB [id number]) Physical Therapy Treatment Education Education Provided Safety M7 PT-IP Assessment and Plan Start: 09/12/21 13:04 Freq: NEEDED Status: Active Protocol: Document 09/12/21 11:35 AB (Rec: 09/12/21 13:17 AB [id number]) PT Summary Assessment and Plan Potential Rehabilitation Potential Good Status of Condition at Evaluation Evolving Summary Impairments Pain,ROM,Strength,Balance, Coordination,Sensation,Tone, Cognition,Bed Mobility, Transfers,Gait,Activity Tolerance Assessment Summary pt requiring CGA to min A with mobility using SPC. Recommending use of FWW for mobility at this time and with improvement with stability and ambulation with use to SBA . pt will nee a FWW for home use. pt also presents with decrease activity tolerance affecting mobility. pt stated that his spouse will be able to assist him at home. pt will also need HHPT to improve overall strength and mobility independence. Goals Bed Mobility Goal Independent Transfer Goal Independent,Front Wheeled Walker Gait Goal Independent,Front Wheel Walker Gait Distance 200 Other Goals improve ambulation using SPC 250 ft mod I up/down 2 steps using SPC mod I; 5 steps SPC+L rail mod I Days to Meet Goals 5 Frequency of Treatment Frequency Of Treatment Once a Day Treatment Plan Physical Therapy Treatment Plan Bed Mobility Training,Transfer Training,Gait Training, Therapeutic Exercise,Balance Retraining,Discharge Planning, Hot or Cold Pack,Neuromuscular Re-ed,Coordination Retraining Precautions Other Precautions falls Recommendations To Nursing Amount of Assist Needed 1 Person Assist Discharge Recommendations PT Discharge Recommendations Home with Assistance,Home Health Equipment Needed for Home Before FWW Discharge Transportation Needs at Discharge Private Vehicle
--- NOTE | 2021-09-12 12:42 | PM.DS.1 ---
History of Present Illness History of Present Illness Date Patient Seen: 09/12/21 Time Patient Seen: 12:42 Chief complaint: Chest pain Narrative: Santa Franco, PATTERN PAINTER-BC: Igor Antony is a 66-year-old male with a medical history of anxiety, CAD, CABG s/p stents X2, NIDDM, hyperlipidemia, hypertension, sleep apnea, BPH and multiple sclerosis who presented to the [facility] ED complaining of chest pain, nausea, vomiting, lightheadedness, and headache x2 days.? Chest pain was described as chest heaviness like a safe sitting on chest Chest pressure :constant, generalized, diffuse, moderate, no known inciting factors, improved with Medication in ED, with associated? JAIMES which is unusual for the patient, nausea, and vomiting.? And patient has been unable to keep food or fluids down for the last 24 hours.? After 2 days of intractable nausea and vomiting patient began to feel lightheaded, and felt warm but no temperature noted at home.? Reviewed case with Dr. Horton from a [facility] ED at approximately 1930, agreed to accept patient for transfer for a DKA with anion gap of 27, secondary to dehydration, acute respiratory alkalosis with hypocapnia in the setting of [id number] type 2 diabetes with hyperglycemia.? Upon admit patient verbalizes that chest pressure and headache have resolved.? Patient denies chest pain shortness of breath, vomiting, hematemesis, hematuria, melena, fever, body aches, chills, changes in vision, recent changes in medication, injury,? or trauma.? Patient does indoors continue nausea, generalized abdominal pain, and requests a catheter for BPH related urinary symptoms.? Patient is currently stable, and in no acute distress. 2199 patient arrived from [facility] on insulin drip per [facility] transport.? I personally reviewed patient's medical records from [facility] to include imaging, Bo findings, EKG do, and chart notes.? Last documented vitals temp 97.5?, BP 143/63 (initial 175/69) tachycardic with HR 110, R 19, O2 saturation 100% on room air, weight 88.5 kg.? HCT 5.2, potassium 5.1, chloride 109, bicarb 8, creatinine 0.70, initial glucose 194 R, last known prior to transfer 133, positive for serum ketone, TSH was low at 0.101, BUN is negative, troponin is negative, albumin 5.2, calcium 10.2, respiratory panel is negative, chlamydia negative COVID negative, patient in gap of 27, patient's ABGs pH 7.170, CO2 of 30, bicarb 10.8, base excess-16.4, urinalysis is positive for glucose, ketones, blood.? CT KUB demonstrated bilateral nephrolithiasis without obstructive uropathy.? Dependent urinary stone in the bladder 2.1 cm.? Chest x-ray demonstrated no acute pneumonia paired with nodular opacities project dri over the lung bases.? EKG demonstrated sinus tachycardia with a rate of 111 right BBB, and LAFB, ST elevation secondary to IVCD, no changes from 06/2019 EKG.? Patient admitted for acute respiratory alkalosis with hypocapnia secondary to DKA as a result of dehydration, in the setting of NIDDM. Discharge Providers Provider Date of admission: 09/09/21 20:40 Discharge Date: 09/12/21 Consults: 09/09/21 22:20 Consult to Respiratory Therapy Evaluate & Treat Comment: sleep apnea, poss CPAP? Physician Instructions: Evaluate and treat 09/11/21 07:40 Consult to ATOMIC SPECTROSCOPIST - Associate Professor Of Forestry Routine Comment: Please contact [facility] [phone] ATOMIC SPECTROSCOPIST Consult needed for:: [facility] Res Need 09/12/21 08:26 Consult to Physical Therapy Evaluate & Treat Comment: Physician Instructions: Evaluate and Treat Discharge provider: Bryson Landrum DO Summary Hospital Course Discharge Diagnosis: 1. DKA, acute, present admission 2. Essential hypertension, acute on chronic, with history CAD CABG s/p times 1 present on admission 3. Hyperlipidemia, chronic, present on admission 4. Multiple sclerosis, with secondary Lumbar disc disease, chronic, present on admission 5. Insomnia, chronic, present admission 6. BPH, with lower urinary symptoms, chronic, present on admission Hospital Course: Igor Antony is a 66-year-old male with a medical history of anxiety, CAD, CABG s/p stents X2, NIDDM, hyperlipidemia, hypertension, sleep apnea, BPH and multiple sclerosis who presented to the [facility] ED complaining of chest pain, nausea, vomiting, lightheadedness, and headache x2 days.? He was found to be in DKA and was transferred to [facility] for further management in the ICU. His anion gap quickly closed and he was given a dose of Lantus on hospital day 1, however he then again developed nausea and vomiting with return of his acidosis and elevated anion gap. He was again started on insulin drip, and the following day his gap and again closed with improvement in his bicarb. He was given a higher dose of Lantus, and the following morning he remained asymptomatic with improvement in his labs. It is not entirely clear the source of the patient's DKA, though he does suspect some chicken led to his symptoms. No overt infection was found. His A1c showed adequate control at 7.5%, further implicating an acute etiology. No changes to his usual diabetic medications are recommended. His blood pressure was mildly low and his home diuretic was recommended to be held. No other medication changes were made at this time. I do recommend a follow-up with his primary care provider. Time Spent with Patient Time spent: Greater than 30 minutes Exam Vital Signs (past 8 hours): - 09/12/21 05:00 09/12/21 05:30 09/12/21 06:00 Temperature Pulse Rate 125 H 129 H 134 H Respiratory Rate 13 20 18 Blood Pressure Pulse Oximetry 09/12/21 06:30 09/12/21 08:37 09/12/21 09:33 Temperature 97.8 F Pulse Rate 133 H 112 H 125 H Respiratory Rate 14 14 Blood Pressure 146/79 H 146/79 H Pulse Oximetry 98 09/12/21 11:23 Temperature Pulse Rate Respiratory Rate Blood Pressure Pulse Oximetry 98 Oxygen Delivery Method Room Air Oxygen Flow Rate 0 Narrative Exam Narrative: General:? Patient is well developed and well nourished, no acute distress. HEENT:? Normocephalic, atraumatic, extraocular muscles intact, oral pharynx is clear and mucous membranes are moist. Neck: supple and symmetric, trachea is midline, no cervical adenopathy. Negative for JVD Chest:? Normal AP diameter and contour without kyphoscoliosis, no tachypnea, equal chest rise bilaterally. Lungs:? CTA b/l no wheezing rhonchi or rales. Cardio:?tachycardic but regular rhythm, no m/r/g. Abdomen: S NT ND. No CVA tenderness. Musculoskeletal:? Muscle strength and tone are equal within normal limits, no deformity. Extremities: No edema or joint effusions. No cyanosis or clubbing. Skin:? Pale,? Warm to touch,dry and intact without rashes, ulcerations or petechiae.? Neuro:? Alert and orientated x3,? sensation to touch intact in all extremities, no gross deficits noted of cranial nerves. Psych:? Patient has a well-kept appearance, appropriate affect, mental status attitude thought context and judgment are appropriate for age. Objective Labs Result Diagrams: 09/12/21 04:12 09/12/21 04:12 Labs: Laboratory Results - last 24 hr 09/11/21 09/12/21 09/12/21 15:46 04:12 04:12 WBC 8.5 RBC 5.20 Hgb 14.1 Hct 41.9 MCV 80.7 MCH 27.2 MCHC 33.7 RDW 14.2 Plt Count 210 Neut % (Auto) 71.5 Lymph % (Auto) 13.8 L [place] % (Auto) 13.7 Eos % (Auto) 0.8 L Baso % (Auto) 0.2 Neut # (Auto) 6100 Lymph # (Auto) 1200 [place] # (Auto) 1200 H Eos # (Auto) 100 Baso # (Auto) 0 Sodium 130 L 132 L Potassium 3.8 3.7 Chloride 103 103 Carbon Dioxide 21 L 24 BUN 12 10 Creatinine 0.48 L 0.55 L Estimated GFR > 60.0 > 60.0 BUN/Creatinine Ratio 25.0 H 18.2 Glucose 249 H 207 H Calcium 10.2 9.8 Phosphorus 2.1 L Magnesium 1.9 PFSH Medical History (Updated 09/10/21 @ 06:15 by PATITO Gerber) Anxiety CAD (coronary artery disease) Hyperlipidemia associated with type 2 diabetes mellitus Insomnia Lumbar disc disease Multiple sclerosis Surgical History (Updated 09/10/21 @ 06:15 by JENIFFER Gerber-PRADEEP) S/P CABG x 1 Family History (Updated 09/10/21 @ 06:16 by PATITO Gerber) Father No problems noted. Mother No problems noted. Social History household members: spouse Smoking Status: Never smoker alcohol intake: current Discharge Plan Discharge Plan Patient Disposition: Home Provider Discharge Comment: You were admitted to the hospital with DKA. You improved with insulin and time. This may have been due to food poisoning but no concerning infections were found on our evaluation. Your diuretic medication was held based on your blood pressures. Please follow BP at home and you can resume if top BP number is >140 at home for >2 days. Otherwise follow up with PCP to discuss this medication change and review hospitalization in about 2 weeks. No diabetes medication changes are recommended at this time as your A1c was good at 7.5%. Discharge orders & Medications Prescriptions: Continued atorvastatin 40 mg Tablet 40 mg PO DAILY 0RF gabapentin 600 mg Tablet 600 mg PO DAILY 0RF enalapril maleate 5 mg Tablet 5 mg PO DAILY 0RF potassium chloride 10 mEq Tablet Extended Release 10 meq PO DAILY 0RF aspirin 81 mg Tablet,Delayed Release (Dr/Ec) 81 mg PO DAILY 0RF triamcinolone acetonide 0.1 % Cream 1 applic TOPICAL BID 0RF citalopram 20 mg Tablet 20 mg PO DAILY 0RF doxazosin 8 mg Tablet 8 mg PO BEDTIME 0RF oxycodone-acetaminophen [Percocet] 10-325 mg Tablet 1 tab PO Q4H PRN (Reason: Pain (Scale Score 4-6)) 0RF zolpidem [Ambien] 5 mg Tablet 5 mg PO BEDTIME PRN (Reason: Sleep) 0RF metformin 500 mg Tablet Extended Release 24 Hr 1,000 mg PO BID 0RF metformin 500 mg Tablet Extended Release 24 Hr 500 mg PO 1200 0RF finasteride 5 mg Tablet 5 mg PO DAILY 0RF ftyfvjdezsgh-nrwrqfhc-hkwbho Tablet 1 tab PO DAILY 0RF cinnamon bark 500 mg Capsule 500 mg PO DAILY 0RF Jardiance 25 mg tablet 25 mg PO DAILY 0RF Discontinued hydrochlorothiazide 25 mg Tablet 25 mg PO DAILY 0RF Diet/Activity/Treatments Diet: Diet as Tolerated Activity: As tolerated Quality VTE Deep Vein Thrombosis/Pulmonary Embolism Present on Admission: No
--- NOTE | 2021-09-12 14:42 | CM.DPC ---
DCP Discharge Home Per MD, pt is tolerating his diet now and A1C is back to normal and medically stable to d/c home today pending PT eval and recommendations. Per PT, recommending safe home with spouse assist and FWW and SW placed FWW orders. Spouse is agreeable with transport to home in [place] and pt to discharge later this afternoon. Plan: Patient to d/c home today with spouse assist and no identified barriers to discharge and no further SW needs. Brenda Swan MSW
--- NOTE | 2021-09-12 16:38 | PT-IP ANOTE ---
Received order for FWW for home use. adjusted FWW and dispensed to pt. pt signed papers. pt planned to go home today.
--- NOTE | 2021-09-12 16:52 | PC.NURSE ---
Patient discharged to home. No new medications, patient to hold diuretic per discharge instructions. Patient indicated that he will follow up with PCP within 2 weeks and said he also plans to see an silverware supervisor. IV and tele removed. Patient has no concerns or further questions about being discharged.
== END 2021-09-12 16:54 | disposition home or self-care (01) | DRG 638 ==
PROVIDERS: Internal Medicine; Admitting Provider Nurse Practitioner Family; Referring Provider Nurse Practitioner Family; Visit Provider Nurse Practitioner Family
DX: E11.10 Type 2 diabetes mellitus with ketoacidosis without coma (principal); E87.3 Alkalosis; E86.0 Dehydration; I10 Essential (primary) hypertension; I25.10 Atherosclerotic heart disease of native coronary artery without angina pectoris; E78.5 Hyperlipidemia, unspecified; G35 Multiple sclerosis; M51.36 Other intervertebral disc degeneration, lumbar region; G47.00 Insomnia, unspecified; N40.1 Benign prostatic hyperplasia with lower urinary tract symptoms; Z79.84 Long term (current) use of oral hypoglycemic drugs; Z95.5 Presence of coronary angioplasty implant and graft; Z95.1 Presence of aortocoronary bypass graft
CPT/HCPCS: 36415; 36600; 80048; 80053; 81001; 82805; 82962; 83036; 83605; 83735; 83880; 84100; 85014; 85018; 85025; 87040; 87086; 94760; 97162; J1650; J1815; J2405; J2765